=== PATIENT | female | born 1950 | race Caucasian/White ===

== ENCOUNTER 2016-11-12 11:03 | Outpatient (CLI) ==
[2016-01-28 14:47] VITALS: BMI 29.9
[2016-11-12 11:20] LABS: BASOPHILS # (AUTO) 0.1 K/uL (0-0.2); BASOPHILS % (AUTO) 0.9 % (0.0-3.0); EOSINOPHILS # (AUTO) 0.2 K/ul (0.0-0.7); HEMATOCRIT 43.1 % (37.0-47.0); HEMOGLOBIN 14.6 g/dl (12.0-16.0); IMMATURE GRANULOCYTE % (AUTO) 0.4 % (0.0-5.0); LYMPHOCYTES # (AUTO) 2.7 K/uL (0.60-3.4); LYMPHOCYTES % (AUTO) 33.8 (10.0-50.0); MEAN CORPUSCULAR HEMOGLOBIN 31.3 pg (27.0-31.0); MEAN CORPUSCULAR HGB CONC 33.9 (31.8-35.4); MEAN CORPUSCULAR VOLUME 92.5 fl (81.0-99.0); MONOCYTES # (AUTO) 0.5 K/uL (0.4-2.0); MONOCYTES % (AUTO) 6.3 (0-10); NEUTROPHILS # (AUTO) 4.5 K/ul (2.0-6.9); NEUTROPHILS % (AUTO) 56.6; PLATELET COUNT 285 10^3/uL (140-440); RED BLOOD COUNT 4.66 10^6/ul (4.20-5.40); WHITE BLOOD COUNT 7.96 K/ul (4.6-10.2)
[2016-11-12 11:36] LABS: ALBUMIN 4.1 g/dL (3.4-5.0); ALBUMIN/GLOBULIN RATIO 1.03; ANION GAP 16.4; BILIRUBIN,TOTAL 0.65 mg/dL (0.00-1.20); CALCIUM 10.1 mg/dL (8.2-10.2); CREATININE 1.1 mg/dL (0.60-1.30); POTASSIUM 4.4 mmol/L (3.5-5.10); TOTAL PROTEIN 8.1 g/dL (5.8-8.1)
[2016-11-13 09:14] LABS: CHOL/HDL RATIO 3.6 (4.5-5.5)
== END 2016-11-12 11:04 | disposition home or self-care (01) ==
LOC: LAB 11:03
PROVIDERS: ATTEND Family Medicine
DX: E03.9 Hypothyroidism, unspecified (principal); I10 Essential (primary) hypertension
CPT/HCPCS: 36415; 80053; 80061; 84443; 85025

== ENCOUNTER 2017-10-03 19:17 | Emergency (ER) | payer OTHER ==
[2017-10-03 19:18] VITALS: BMI 29.9
[2017-10-03] MEDS ORDERED: SODIUM CHLORIDE 1,000 ML IV STA (19:30)
[2017-10-03 19:32] VITALS: TEMP 97.6
[2017-10-03] MEDS ORDERED: DEMEROL 100 MG/ML SYRINGE IM STA (20:17)
[2017-10-03] MEDS ORDERED: ZOFRAN 4 MG/2 ML IM STA (20:17)
[2017-10-03] MEDS ORDERED: DEMEROL 100 MG/ML SYRINGE IVP STA (20:21)
[2017-10-03] MEDS ORDERED: ZOFRAN 4 MG/2 ML IVP STA (20:22)
--- NOTE | 2017-10-03 20:27 | ED.PDOC ---
General ED Provider: Dr. JACKELIN CASTAÑEDA Chief Complaint: Chest Pain Stated Complaint: Patient started having left arm pain since [address] man and left mid back pain she started takimh Niotro, pain was getting better for some and comes back again,. she took 3 nitro, still having pain so came for the evaluation Time Seen by Physician: 20:25 Mode of Arrival: Walk-In Information Source: Patient Primary Care Provider: DEANDRE MELARA Nursing and Triage Documentation Reviewed and Agree: Yes Does patient meet sepsis criteria?: No If yes, has appropriate treatment been initiated?: No System Inflammatory Response Syndrome: Not Applicable Sepsis Protocol: For patient's 13 years and over: Temp is 96.8 and below OR 101 and greater Pulse >90 BPM Resp >20/minute Acutely Altered Mental Status Are patient's symptoms suggestive of a new infection, such as: -Pneumonia -Skin, Soft Tissue -Endocarditis -UTI -Bone, Joint Infection -Implantable Device -Acute Abdominal Infection -Wound Infection -Meningitis -Blood Stream Catheter Infection -Unknown Cardiovascular Complaint Exam - Chest Pain Complaint/Exam Onset: Gradual Symptoms Are: Still present Timing: Constant Initial Severity: Moderate Current Severity: Moderate Location: Reports: Upper sternal, Left anterior, Left lateral Pain Radiates: Reports: Back Character: Reports: Dull, Aching, Tightness Aggravating: Reports: Exertion Alleviating: Reports: Nitro Associated Signs and Symptoms: Denies: Diaphoresis, Nausea, Vomiting, Fever, Palpitations, Cough, Hemoptysis, Back pain, Abdominal pain, Dizziness, Short of air, Calf pain, Calf swelling Related History: Reports: Similar episode Related Surgical History: Reports: None AMI/ACS Risk Factors: Reports: Myocardial Infarction, Hypertension TAD Risk Factors: Reports: None Pulmonary Embolism Risk Factors: Reports: None Prior Care for this Complaint: No Recent Stress Test: No Recent Echo/LV Function: No JVD Present: No Subcutaneous Emphysema Present: No Diminshed Breath Sounds: No Reproducible Chest Wall Pain: No Bilateral Pulses Present: No Unequal Pulses Noted: No If Risk Factors for AMI/ACS Consider: EKG, Cardiac Enzymes, Serial Studies, Oxygen, Aspirin Differential Diagnoses: Stable Angina, Unstable Angina Review of Systems - Review Of Systems Constitutional: Reports: No symptoms Eyes: Reports: No symptoms Ears, Nose, Mouth, Throat: Reports: No symptoms Respiratory: Reports: No symptoms Cardiac: Reports: Chest pain GI: Reports: No symptoms : Reports: No symptoms Musculoskeletal: Reports: No symptoms Skin: Reports: No symptoms Neurological: Reports: No symptoms Endocrine: Reports: No symptoms Hematologic/Lymphatic: Reports: No symptoms All Other Systems: Reviewed and Negative Past Medical History - Past Medical History Previously Healthy: Yes Endocrine: Reports: Hypothyroid Cardiovascular: Reports: Other (stress indued angina ) Respiratory: Reports: None Hematological: Reports: None Gastrointestinal: Reports: None Genitourinary: Reports: None Neuro/Psych: Reports: None Musculoskeletal: Reports: None Cancer: Reports: None Last Menstrual Period: NA Other Pertinent Past Medical History: thyroid--gallbladder --tubal--eye surg x2- -trigger finger rt hand - Surgical History General Surgical History: Reports: Tubal ligation, Cholecystectomy, Other ( thyroid--gallbladder --tubal--eye surg x2--trigger finger rt hand ) - Family History Family History: Reports: Unknown - Social History Smoking Status: Former smoker Hx Substance Use: No Alcohol Screening: Occasionally - Immunizations Tetanus Shot up to Date: No Physical Exam - Physical Exam Appearance: Well-appearing, No pain distress, Well-nourished Eyes: MATILDA, EOMI, Conjunctiva clear ENT: Ears normal, Nose normal, Oropharynx normal Respiratory: Airway patent, Breath sounds clear, Breath sounds equal, Respirations nonlabored Cardiovascular: RRR, Pulses normal, No rub, No murmur GI/: Soft, Nontender, No masses, Bowel sounds normal, No Organomegaly Musculoskeletal: Normal strength, ROM intact, No edema, No calf tenderness Skin: Warm, Dry, Normal color Neurological: Sensation intact, Motor intact, Reflexes intact, Cranial nerves intact, Alert, Oriented Psychiatric: Affect appropriate, Mood appropriate Interpretation - Radiology Interpretation Radiology Interpretation By: Radiologist Radiology Results: Negative Exam Interpreted: CT Scan - EKG Interpretation Time of EKG #1: 22:26 Rate: Normal Rhythm: Sinus Ectopy: None Critical Care Note - Critical Care Note Total Time (mins): 30 Course - Course Hematology/Chemistry: 10/03/17 19:45 10/03/17 19:45 Orders, Labs, Meds: Lab Review 10/03/17 10/03/17 10/03/17 19:45 19:45 19:45 WBC 10.08 RBC 4.04 L Hgb 12.7 Hct 39.0 MCV 96.5 MCH 31.4 H MCHC 32.6 RDW Coeff of Lamar 13.3 Plt Count 218 Immature Gran % (Auto) 0.3 Neut % (Auto) 70.6 Lymph % (Auto) 22.8 Letcher % (Auto) 5.1 Eos % (Auto) 0.8 Baso % (Auto) 0.4 Immature Gran # (Auto) 0.0 Neut # (Auto) 7.1 H Lymph # (Auto) 2.3 Letcher # (Auto) 0.5 Eos # (Auto) 0.1 Baso # (Auto) 0.0 D-Dimer (Manual) 657.13 Sodium 133 L Potassium 3.9 Chloride 105 Carbon Dioxide 20 L Anion Gap 11.9 BUN 23 H Creatinine 0.93 Estimated GFR (MDRD) 61.00 BUN/Creatinine Ratio 24.73 Glucose 98 Calcium 8.5 Total Bilirubin 0.7 AST 39 H ALT 49 Alkaline Phosphatase 80 Total Creatine Kinase 103 Troponin I < 0.0100 Total Protein 7.3 Albumin 3.5 Globulin 3.8 Albumin/Globulin Ratio 0.92 Orders Category Date Time Status EKG-(ED ONLY) Stat CARDIO 10/03/17 19:30 Completed NPO REMINDER: IMAGING ONCE CARE 10/03/17 20:29 Active CBC W/ AUTO DIFF Stat LAB 10/03/17 19:45 Completed COMPREHENSIVE METABOLIC PANEL Stat LAB 10/03/17 19:45 Completed CREATINE KINASE Stat LAB 10/03/17 19:45 Completed D-DIMER Stat LAB 10/03/17 19:45 Completed TROPONIN I Stat LAB 10/03/17 19:45 Completed 0.9 % Sodium Chloride [Saline Flush] MEDS 10/03/17 19:30 Ordered 1 syr IVF PRN PRN Meperidine HCl/Pf [Demerol 100 mg/ml Syringe] MEDS 10/03/17 20:21 Discontinued 50 mg IVP ONCE STA Ondansetron HCl/Pf [Zofran 4 mg/2 ml] MEDS 10/03/17 20:22 Discontinued 4 mg IVP ONCE STA Sodium Chloride 0.9% [Sodium Chloride] 1,000 ml MEDS 10/03/17 19:30 Active IV 100 mls/hr CT CHEST PE PROTOCOL Stat RADS 10/03/17 20:[address] CHEST W/O CONTRAST Stat RADS 10/03/17 19:30 Completed Medications Generic Name Dose Route Start Last Admin Trade Name Freq PRN Reason Stop Dose Admin Sodium Chloride 1,000 mls @ 100 mls/hr 10/03/17 19:30 10/03/17 19:37 Sodium Chloride IV 10/04/17 05:29 100 mls/hr .Q10H STA Administration Sodium Chloride 1 syr 10/03/17 19:30 10/03/17 20:33 Saline Flush IVF 1 syr PRN PRN Administration To flush IV Discontinued Medications Generic Name Dose Route Start Last Admin Trade Name Ellen PRN Reason Stop Dose Admin Meperidine HCl 50 mg 10/03/17 20:21 10/03/17 20:31 Demerol 100 Mg/Ml Syringe IVP 10/03/17 20:22 50 mg ONCE STA Administration Ondansetron HCl 4 mg 10/03/17 20:22 10/03/17 20:27 Zofran 4 Mg/2 Ml IVP 10/03/17 20:23 4 mg ONCE STA Administration Vital Signs: Temp Pulse Resp BP Pulse Ox 10/03/17 20:19 91 H 19 118/69 98 10/03/17 19:30 139/74 10/03/17 19:19 97.6 F 88 16 154/86 H 98 SANTOS Risk Score Age >/= 65: Yes >/= 3 CAD Risk Factors: Yes Known CAD (Stenosis >/= 50%): Yes ASA Use in Past 7 Days: Yes Severe Angina (>/= 2 episodes in 24 hours): Yes EKG ST Changes >/= 0.5mm: No Postive Cardiac Marker: No SANTOS Total Score: 5 SANTOS Risk Score: Risk Score Odds of by 30D 0 0.1 (0.1-0.2) 1 0.3 (0.2-0.3) 2 0.4 (0.3-0.5) 3 0.7 (0.6-0.9) 4 1.2 (1.0-1.5) 5 2.2 (1.9-2.6) 6 3.0 (2.5-3.6) 7 4.8 (3.8-6.1) Departure - Departure Time of Disposition: 22:25 Disposition: TSF OTHER Discharge Problem: Angina at rest Instructions: Angina (DC) Condition: Stable Pt referred to PMD for follow-up: Yes IPMP verified?: No Allergies/Adverse Reactions: Allergies morphine Adverse Reaction (Verified 11/05/16 14:45) Penicillins Adverse Reaction (Verified 01/28/16 14:45) Home Medications: Ambulatory Orders Alprazolam [Xanax] 0.5 mg PO DAILY PRN 01/28/16 Amlodipine Besylate [Norvasc] 5 mg PO DAILY 01/28/16 Aspirin [Aspirin EC] 81 mg PO DAILYWM 01/28/16 Isosorbide Mononitrate [Imdur] 30 mg PO DAILY 01/28/16 Levothyroxine Sodium [Synthroid] 100 mcg PO QDAC 01/28/16 Pantoprazole Sodium 40 mg PO DAILY 01/28/16 Tramadol HCl 50 mg PO BID 01/28/16 Disposition Discussed With: Patient, Family
--- NOTE | 2017-10-03 20:38 | CT ---
EXAM: CT scan thorax without contrast HISTORY: Chest pain COMPARISON: CT scan thorax 02/19/2008 FINDINGS: Contiguous axial images obtained through the thorax without contrast utilizing 5-mm collim ation. Sagittal and coronal reconstructions were imaged and reviewed.. The thoracic inlet is unrema rkable. The ascending aorta is ectatic measuring 3.3 cm. The heart is normal in size with coronary artery calcification. There is no pericardial effusion.. Minimal scarring is seen within the lingul a.. There is a 2 mL subpleural nodule posteriorly within the superior segment right lower lobe. The re has been prior cholecystectomy. Adrenal glands are normal.. Degenerative changes are seen within the mid dorsal spine. Diverticulosis. IMPRESSION: Normal sized cardiac silhouette with coronary artery calcification. Ectatic ascending aorta. 2 mm subpleural nodule right lower lobe.
--- NOTE | 2017-10-03 21:53 | CT ---
Exam: CTA chest. Date: 10/03/2017. Comparison: 10/03/2017. HISTORY: Chest pain with positive D-dimer. TECHNIQUE: Helical scan of the thorax was performed following intravenous contrast. MIP and 3-D rec onstruction was performed. Changes suggestive of a thyroidectomy are present. The axillary regions are normal.. No suspicious mediastinal adenopathy is seen. Caliber of the thoracic aorta cardiac chambers are normal. The sple en and liver have a uniform attenuation. Cholecystectomy is noted. The stomach, pancreas, adrenal g lands and kidneys appear normal. Minor multilevel degenerative changes are present in the thoracic spine. No lytic or blastic lesions or displaced rib fractures are seen. Evaluation at lung window settings demonstrates granulomatous calcifications. No suspicious pulmonar y nodules, pleural fluid or consolidation is present. There is good enhancement of the pulmonary arteries and no intraluminal filling defects are seen out to the segmental pulmonary arterial divisions. Impression: No acute intrathoracic findings. No evidence of emboli out to the segmental pulmonary a rterial divisions. Old granulomatous disease. Cholecystectomy.
[2017-10-03] MEDS ORDERED: ASPIRIN CHEWABLE PO STA (22:27)
[2017-10-03] MEDS ORDERED: NITROPRESS 50 MG in DEXTROSE 5%-WATER IV SOLN 248 ML IV SCH (22:30)
[2017-10-03] MEDS ORDERED: LOVENOX SUBCUT ONE (22:41)
[2017-10-03] MEDS ORDERED: NITROGLYCERIN 250 ML IV ONE (22:48)
[2017-10-04 01:19] VITALS: BP 135/79
== END 2017-10-03 23:50 | disposition short-term general hospital (02) ==
LOC: ED 19:17
DX: I20.9 Angina pectoris, unspecified (principal); I10 Essential (primary) hypertension; I25.2 Old myocardial infarction; E03.9 Hypothyroidism, unspecified; Z79.899 Other long term (current) drug therapy
CPT/HCPCS: 36415; 80053; 82550; 84484; 85025; 85379; 93005; 93010; 96361; 96365; 96375; 99285

== ENCOUNTER 2018-03-23 09:05 | Emergency (ER) ==
[2018-03-23 09:17] VITALS: BP 147/85; TEMP 97.1; BMI 30.2
--- NOTE | 2018-03-23 09:36 | ED.PDOC ---
General ED Provider: Dr. DEANDRE GUILLAUME Chief Complaint: Allergic Reaction Stated Complaint: Swelling and pain of gums and lips. Onset 2 days. Denies fever, chills, cough or congestion. No exposure to sources of infection. Time Seen by Physician: 09:20 Mode of Arrival: Walk-In Information Source: Patient Primary Care Provider: DEANDRE MELARA Nursing and Triage Documentation Reviewed and Agree: Yes Does patient meet sepsis criteria?: No System Inflammatory Response Syndrome: Not Applicable Sepsis Protocol: For patient's 13 years and over: Temp is 96.8 and below OR 101 and greater Pulse >90 BPM Resp >20/minute Acutely Altered Mental Status Are patient's symptoms suggestive of a new infection, such as: -Pneumonia -Skin, Soft Tissue -Endocarditis -UTI -Bone, Joint Infection -Implantable Device -Acute Abdominal Infection -Wound Infection -Meningitis -Blood Stream Catheter Infection -Unknown EENT Complaint Exam - Throat Complaint/Exam Onset/Duration: 2 days Symptoms Are: Still present Timimg: Constant Initial Severity: Moderate Current Severity: Moderate Aggravating: Reports: Eating Alleviating: Reports: None Associated Signs and Symptoms: Denies: Fever, Dysphagia, Drooling, Foreign body sensation, Chills, Cough, Wheezing, Hoarseness, Sinus discomfort, Nasal congestion, Difficulty breathing, Lethargy, Irritability, Decreased activity, Vomiting, Diarrhea, Decreased hearing, Ear drainage Uvula Midline: Yes Laure-tonsillar Fluctuence: No Scarlatinaform Rash Present: No Lesions: Present: Lip, Gums, Buccal Mucosa Exanthem: Absent: Lip Vesicles: Present: Lip, Gums, Buccal Mucosa Stridor Present: No Sinus Tenderness Present: No Tonsillar Hypertrophy Present: No Laure-tonsillar Swelling Present: No Review of Systems - Review Of Systems Constitutional: Reports: No symptoms Eyes: Reports: No symptoms Ears, Nose, Mouth, Throat: Reports: No symptoms Respiratory: Reports: No symptoms Cardiac: Reports: No symptoms GI: Reports: No symptoms : Reports: No symptoms Musculoskeletal: Reports: No symptoms Skin: Reports: No symptoms Neurological: Reports: No symptoms Endocrine: Reports: No symptoms Hematologic/Lymphatic: Reports: No symptoms All Other Systems: Reviewed and Negative Past Medical History - Past Medical History Previously Healthy: Yes Endocrine: Reports: Hypothyroid Cardiovascular: Reports: Other (stress indued angina ) Respiratory: Reports: None Hematological: Reports: None Gastrointestinal: Reports: None Genitourinary: Reports: None Neuro/Psych: Reports: None Musculoskeletal: Reports: None Cancer: Reports: None Last Menstrual Period: unknown Other Pertinent Past Medical History: thyroid--gallbladder --tubal--eye surg x2- -trigger finger rt hand - Surgical History General Surgical History: Reports: Tubal ligation, Cholecystectomy, Other ( thyroid--gallbladder --tubal--eye surg x2--trigger finger rt hand ) - Family History Family History: Reports: Unknown - Social History Smoking Status: Former smoker Hx Substance Use: No Alcohol Screening: Occasionally Physical Exam - Physical Exam Appearance: Well-appearing, No pain distress, Well-nourished Ill-appearing: None Pain Distress: None Eyes: MATILDA, EOMI, Conjunctiva clear ENT: Erythema (areas in oral cavity, buccal mucosa and lips) Neck: Supple Respiratory: Airway patent, Breath sounds clear, Breath sounds equal, Respirations nonlabored Cardiovascular: RRR, Pulses normal, No rub, No murmur GI/: Soft, Nontender, No masses, Bowel sounds normal, No Organomegaly Musculoskeletal: Normal strength, ROM intact, No edema, No calf tenderness Skin: Warm, Dry, Normal color Neurological: Sensation intact, Motor intact, Reflexes intact, Cranial nerves intact, Alert, Oriented Psychiatric: Affect appropriate, Mood appropriate Critical Care Note - Critical Care Note Total Time (mins): 0 Course - Course Hematology/Chemistry: 03/23/18 09:55 03/23/18 09:55 Vital Signs: Temp Pulse Resp BP Pulse Ox 03/23/18 09:05 97.1 F L 74 20 147/85 H 98 Departure - Departure Time of Disposition: 11:40 Disposition: DISCHARGED TO HOSPICE -HOME Discharge Problem: Aphthous stomatitis, Gingivostomatitis Instructions: Gingivostomatitis (ED) Condition: Good Pt referred to PMD for follow-up: Yes (prn ) IPMP verified?: No Additional Instructions: Rinse mouth with warm salt water Take antibiotics as directed Mylanta 15 ml orally 4 times daily Swish and swallow Prescriptions: Doxycycline Hyclate 100 mg PO BID #20 tablet Lidocaine HCl [Lidocaine Viscous 2%] 5 ml [id number] 1-3XD PRN #1 btl PRN Reason: mouth pain Lidocaine HCl [Lidocaine Viscous 2% 100 ml] 5 ml PO TID PRN #100 ml PRN Reason: for relief of oral pain Allergies/Adverse Reactions: Allergies morphine Adverse Reaction (Verified 03/23/18 09:13) Penicillins Adverse Reaction (Verified 03/23/18 09:13) Home Medications: Ambulatory Orders Alprazolam [Xanax] 0.5 mg PO DAILY PRN 01/28/16 Amlodipine Besylate [Norvasc] 5 mg PO DAILY 01/28/16 Aspirin [Aspirin EC] 81 mg PO DAILYWM 01/28/16 Isosorbide Mononitrate [Imdur] 30 mg PO DAILY 01/28/16 Levothyroxine Sodium [Synthroid] 100 mcg PO QDAC 01/28/16 Pantoprazole Sodium 40 mg PO DAILY 01/28/16 Tramadol HCl 50 mg PO BID 01/28/16 Doxycycline Hyclate 100 mg PO BID #20 tablet 03/23/18 Lidocaine HCl [Lidocaine Viscous 2% 100 ml] 5 ml PO TID PRN #100 ml 03/23/18 Lidocaine HCl [Lidocaine Viscous 2%] 5 ml [id number] 1-3XD PRN #1 btl 03/23/18 Disposition Discussed With: Patient
[2018-03-23] MEDS ORDERED: LIDOCAINE VISCOUS 2% 15 ML UD MUCOUSMEMB STA (10:15)
[2018-03-23] MEDS ORDERED: DECADRON 4 MG/ML SDV IM SCH (12:00)
[2018-03-23] MEDS ORDERED: DECADRON 4 MG/ML SDV IM STA (12:03)
== END 2018-03-23 12:20 | disposition home or self-care (01) ==
LOC: ED 09:05
DX: K12.1 Other forms of stomatitis (principal); K05.10 Chronic gingivitis, plaque induced
CPT/HCPCS: 36415; 80053; 85025; 87651; 96372; 99283

== ENCOUNTER 2018-04-01 13:05 | Outpatient (CLI) | payer OTHER ==
--- NOTE | 2018-04-01 13:25 | DI ---
Exam: Three views of the left ankle. Comparison: 01/28/2016. Reason for exam: Pain. FINDINGS: No acute fracture or malalignment. The talar dome is intact. Degenerative findings are s een adjacent to the lateral malleolus. Impression: 1. No obvious fracture or dislocation in the left ankle. 2. Osseous irregularities adjacent to the lateral malleolus likely represent degenerative change. C annot completely rule out the possibility of a small avulsion fracture. Recommend correlation with t he site of patient's pain.
== END 2018-04-01 13:06 | disposition home or self-care (01) ==
LOC: RAD 13:05
PROVIDERS: ATTEND Family Medicine
DX: M25.572 Pain in left ankle and joints of left foot (principal)